=== PATIENT | female | born 1975 | race Caucasian/White ===

== ENCOUNTER → 2016-10-15 | Outpatient (CLI) | payer OTHER ==
--- NOTE | 2016-10-15 11:28 | KCIC ---
PROCEDURE MR of the left thigh HISTORY Left hamstring strain. Bruising at the posterior thigh. Injury September 25. Instant pain in the hamstring. COMPARISON None TECHNIQUE Routine multiplanar sequences are obtained. FINDINGS High-grade near complete rupture of the semimembranosus tendon attachment to the ischium. Complete rupture of the conjoint semitendinosus/long head of the biceps tendon from the ischium, with distal retraction measuring 5 centimeters. A small fluid collection or hematoma is identified within the tendon gap. The sciatic nerve contacts and is immediately anterolateral to the hematoma. Mild intramuscular strain extends into the proximal muscles. Partial intramuscular tearing is identified within the semimembranosus muscle at the level of the mid to distal thigh. No evidence of bone lesion. No acute fracture or marrow edema. No periosteal reaction. Small knee joint effusion is barely visualized. IMPRESSION Avulsive tear of the proximal hamstring tendons from the ischial tuberosity, consisting of complete rupture of the conjoint tendon with 5 cm distal retraction, and high-grade tear of the semimembranosus attachment. Partial tearing within the semimembranosus muscle at the mid to distal thigh. Electronically signed by: Prakash Cameron MD (October 15, 2016 11:27:17)
== END | disposition home or self-care (01) ==
LOC: KCIC MRI 09:58
PROVIDERS: ATTEND Family Medicine
DX: S76.312D Strain of muscle, fascia and tendon of the posterior muscle group at thigh level, left thigh, subsequent encounter (principal); X58.XXXD Exposure to other specified factors, subsequent encounter
CPT/HCPCS: 73718

== ENCOUNTER 2016-11-26 05:52 | Day surgery (SDC) | payer OTHER ==
[~2016-11-26 05:52] MED LIST: IBUP-1060 PO; LORA10TA3 PO; MELO15TA23 PO; MOME17SP NS; PROAIR RESPICL90 MCG IH
[2016-11-26] MEDS ORDERED: LORA10TA68 PO (06:19)
[2016-11-26] MEDS ORDERED: PROCHLORPERAZINE 10 MG/2 ML VIAL. IV PRN (07:00)
[2016-11-26] MEDS ORDERED: ONDANSETRON PF 4 MG/2 ML VIAL. IV PRN (07:00)
[2016-11-26] MEDS ORDERED: IV RINGERS,LACTATED 1000ML 1,000 ML IV SCH (07:00)
[2016-11-26] MEDS ORDERED: HYDROmorphone 2 MG/ML VIAL IV PRN (07:00)
[2016-11-26] MEDS ORDERED: MORPHINE SULFATE 2 MG/ML DISP.SYRIN. IV PRN (07:00)
[2016-11-26] MEDS ORDERED: fentaNYL PF VIAL 100 MCG/2 ML VIAL IV PRN (07:00)
[2016-11-26] MEDS ORDERED: LIDOCAINE 1% 1 ML SYRINGE. ID PRN (07:00)
[2016-11-26] MEDS ORDERED: DEXAMETHASONE SOD PHOS 20 MG/5 ML VIAL. ONE (07:20)
[2016-11-26] MEDS ORDERED: ONDANSETRON PF 4 MG/2 ML VIAL. ONE (07:20)
[2016-11-26] MEDS ORDERED: LIDOCAINE 2% PF Vial for OR 5 ML VIAL. ONE (07:20)
[2016-11-26] MEDS ORDERED: PROPOFOL 20 ML IV ONE (07:20)
[2016-11-26] MEDS ORDERED: FAMOTIDINE 20 MG/2 ML VIAL ONE (07:20)
[2016-11-26] MEDS ORDERED: fentaNYL PF VIAL 100 MCG/2 ML VIAL ONE ×2 (07:21→08:42)
[2016-11-26] MEDS ORDERED: MIDAZOLAM HCL/PF 2 MG/2 ML VIAL. ONE (07:21)
[2016-11-26] MEDS ORDERED: ROCURONIUM 50 MG/5 ML VIAL. ONE (07:21)
[2016-11-26] MEDS ORDERED: SCOPOLAMINE 1.5MG PATCH. TD ONE (07:38)
--- NOTE | 2016-11-26 08:03 | DISCH ---
DISCHARGE INSTRUCTIONS Condition on Discharge Condition on Discharge: Stable Activity After Discharge Activity Instructions for Disc: Other, see below Other activity instructions: brace to limit motion Weight Bearing Status after Di: Touch down weight bearing Diet after Discharge Diet after Discharge: Regular Wound Incision Care Wound/Incision Care: Change dressing Other wound/incision instructi: remove dressing in 3 days, may shower if no drainage Contacting the [facility] after DC Call your doctor for: Concerns you may have Follow-Up Follow up with: Mahamed 2 weeks TIFFANY GOODWIN MD Nov 26, 2016 08:03
[2016-11-26] MEDS ORDERED: OXYC-327 PO (08:04)
[2016-11-26 09:06] LABS: NEG OBC UR NEG; POS OBC UR POS
[2016-11-26] MEDS ORDERED: PHENYLEPHRINE in 0.9% NACL PF 1 MG/10 ML DISP.SYRIN. IV ONE (09:24)
[2016-11-26] MEDS ORDERED: GLYCOPYRROLATE 1 MG/5 ML VIAL. ONE (09:24)
[2016-11-26] MEDS ORDERED: NEOSTIGMINE METHYLSULFATE 5 MG/5 ML SYRINGE. ONE (09:24)
[2016-11-26] MEDS: fentaNYL PF VIAL 100 MCG/2 ML VIAL IV PRN ×2 (10:05→10:44)
[2016-11-26] MEDS ORDERED: oxyCODONE/APAP 7.5/325 1 TAB TABLET PO PRN (10:30)
[2016-11-26 11:05] VITALS: BP 128/65
--- NOTE | 2016-12-23 10:50 | OP ---
DATE OF SURGERY: 11/26/2016 PREOPERATIVE DIAGNOSIS: Left proximal hamstring avulsion. POSTOPERATIVE DIAGNOSIS: Left proximal hamstring avulsion. PROCEDURE: Left proximal hamstring tendon repair. SURGEON: Dr. Win Irby. ANESTHESIA: General. ESTIMATED BLOOD LOSS: 50 mL. COMPLICATIONS: None. OPERATIVE INDICATIONS: The patient is a 41-year-old female who injured herself and was confirmed via MRI to have a proximal hamstring tendon avulsion of at least 2 of the 3 tendon's insertion avulsed from the pelvis with retraction of the 2 tendons. She indicated severe limitations of her daily and desired activities secondary to pain and weakness in the area and wishes to proceed with repair again to return to the active schedule of work and leisure activities including running, rock climbing, hiking, etc. I had gone over with her the typical restrictions, particularly motion restrictions for the hip to protect the repair, possibility of nerve or blood vessel damage, sighting the to the sciatic nerve and particular the possibility of infection, medical or other anesthetic complications. All her questions were answered. Consent was obtained and she agrees to proceed with operative evaluation and treatment. DESCRIPTION OF PROCEDURE: The patient was identified, procedure verified, patient placed initially in the supine position on the operating table. After adequate amounts of general endotracheal anesthesia were administered, she was placed prone with all bony prominences well padded and the left lower extremity was prepped and draped in the standard sterile fashion leaving access to the inferior crease of the buttock. After timeout was performed, the patient and procedure identified and verified. An incision was made in the left buttock crease. Dissection carried out down to the inferior pubic ramus hamstring. Proximal hamstrings were located at their avulsion from the insertion. The sciatic nerve was carefully protected, avoided, and avoided any traction on the nerve. The bony origin site was cleaned with the rongeur back to bleeding bony tissue to allow healing. A total of 2 knots were double loaded, [employer] suture anchors were drilled and deployed at the insertion site with excellent purchase verified by being able to this from the individual sutures strands. The tendons were lightly debrided and the sutures woven in a grasping fashion with the first of the 2 strands and which were then tied with the surgeon's knot backed up by alternating post-half hitches, looked excellent apposition of the proximal hamstrings to their insertion point on the pubic ramus. The additional suture limbs were again passed in a grasping fashion to supplement the repair and woven through the most lateral of the hamstrings with additional reinforcement as the avulsion was only partial. In all, excellent apposition was obtained. Knots were again secured, thorough irrigation carried out with normal saline solution. Fascia was closed with buried Vicryl Plus suture. Subcuticular closure with 4-0 Monocryl and then occlusive skin dressing was placed to seal up the closure. Sterile dressings were applied. The patient was returned to recovery room in stable condition having tolerated the procedure well. WIN IRBY MD DR: SCOTT/melissa JOB#: [id number] / [id number] TOMMY Granda
== END 2016-11-26 12:13 | disposition home or self-care (01) ==
LOC: SURG 05:52
PROVIDERS: ATTEND Orthopaedic Surgery
DX: S76.892A Other injury of other specified muscles, fascia and tendons at thigh level, left thigh, initial encounter (principal); X58.XXXA Exposure to other specified factors, initial encounter; Y93.9 Activity, unspecified; Y92.89 Other specified places as the place of occurrence of the external cause; Y99.9 Unspecified external cause status; M19.90 Unspecified osteoarthritis, unspecified site; Z87.442 Personal history of urinary calculi; Z72.89 Other problems related to lifestyle
CPT/HCPCS: 27385; 81025; J0690; J0780; J1100; J2250; J2405; J2704; J2710; J3010; J3490; J7120; S0028; J2001; J2370